=== PATIENT | female | born 1985 | race Caucasian/White ===

== ENCOUNTER 2016-07-13 22:02 | Outpatient (CLI) | payer SELFPAY | END 2016-07-13 22:03 | disposition critical access hospital (66) | DX: R56.9 Unspecified convulsions (principal) | CPT/HCPCS: A0425; A0429 ==

== ENCOUNTER 2016-07-13 22:23 | Emergency (ER) | payer SELFPAY ==
[2016-07-13] MEDS ORDERED: lamoTRIgine 100 MG TABLET PO STA (22:31)
== END 2016-07-13 23:57 | disposition home or self-care (01) ==
DX: G40.909 Epilepsy, unspecified, not intractable, without status epilepticus (principal); T42.6X6A Underdosing of other antiepileptic and sedative-hypnotic drugs, initial encounter; Z91.128 Patient's intentional underdosing of medication regimen for other reason
CPT/HCPCS: 36415; 80053; 81001; 83690; 85025; 87086; 99284; A9270

== ENCOUNTER 2017-01-17 10:51 | Emergency (ER) | payer MEDICAID ==
[2017-01-17] MEDS ORDERED: ALBUTEROL NEB 2.5 MG/3 ML INH STA (13:13)
[2017-01-17 13:25] LABS: RAPID STREP SCREEN REAGENT QC YELLOW (YELLOW)
[2017-01-17] MEDS ORDERED: ALBUTEROL NEB 2.5 MG/3 ML INH ONE (13:29)
[2017-01-17] MEDS ORDERED: IPRATROPIUM 0.2 MG/ML NEB INH STA (13:39)
--- NOTE | 2017-01-17 13:39 | ED Physician Documentation ---
History of Present Illness - Stated complaint Stated Complaint: COUGH - Chief complaint Chief Complaint: Resp - Additonal information Additional information: hx from pt 31 f 11 weeks EGRenata has URI sx started with sore throat, no severe myalgias and unstoppable cough called her PMD and was advised that 2/2 prgnancy they did not know what she could take called her OB and rec robitussin which she tried s relief no flu shot no leg swelling no travel her son is ill with similar Review of Systems Constitutional: reports: Myalgias. denies: Fever Throat: reports: Sore throat Respiratory: reports: Cough GI: denies: Nausea, Vomiting, Diarrhea : reports: Now EGA Immunocompromised: denies: Immunocompromised PD PAST MEDICAL HISTORY - Past Medical History Past Medical History: Yes Neuro: Seizure disorder - Past Surgical History Past Surgical History: Yes General: Cholecystectomy - Present Medications Home Medications: Ambulatory Orders Medication Instructions Recorded Confirmed lamoTRIgine [Lamictal] 100 mg PO DAILY 07/13/16 01/17/17 Pnv95/Ferrous Fumarate/FA 1 each PO DAILY 01/17/17 01/17/17 [ Formula] - Allergies Allergies/Adverse Reactions: Allergies Allergy/AdvReac Type Severity Reaction Status Date / Time No Known Drug Allergies Allergy Unverified 01/17/17 11:05 - Social History Does the pt smoke?: No Smoking Status: Never smoker Does the pt drink ETOH?: No Does the pt have substance abuse?: No - Immunizations Immunizations are current?: Yes PD ED PE NORMAL - Vitals Vital signs reviewed: Yes - HEENT HEENT: Moist mucous membranes, Pharynx benign - Neck Neck: Supple, no meningeal sign - Cardiac Cardiac: RRR - Respiratory Respiratory: No respiratory distress, Clear bilaterally - Abdomen Abdomen: Soft, Non tender - Extremities Extremities: No edema, No calf tenderness / cord - Neuro Neuro: Alert and oriented X 3 Results - Vitals Vitals: Vital Signs - 24 hr 01/17/17 01/17/17 01/17/17 11:02 12:08 13:27 Temperature 36.9 C 36.7 C Heart Rate 74 79 77 Respiratory 16 18 14 Rate Blood Pressure 129/85 H 122/78 O2 Saturation 99 99 Oxygen O2 Source Room air - Labs Labs: Laboratory Tests 01/17/17 01/17/17 13:04 13:04 Influenza A (Rapid) Negative Influenza B (Rapid) Negative Influenza Types A,B Ag - Group A Strep Rapid Negative PD MEDICAL DECISION MAKING - ED course ED course: lungs clear - doubt pna - defer CXR will check influenza and strep as that would change tx pt reporting intractable spasmodic cough will try a neb - albuterol is cat C but the safest of b agonists and is unlikely to absorbed systemically given via neb - if helpful may consider rx of albuterol or atrovent for pt - if no change then would not merit use in first trimester - did not help strep and flu neg will reassure and dc and rec just tylenol for pain, can try tea and honey etc but have no further med rec Departure - Departure Disposition: 01 Home, Self Care Clinical Impression: URI (upper respiratory infection) Qualifiers: URI type: unspecified URI Qualified Code(s): J06.9 - Acute upper respiratory infection, unspecified Qualifiers: Weeks of gestation: 11 weeks Qualified Code(s): Z3A.11 - 11 weeks gestation of Condition: Good Instructions: ED Upper Resp Infec No Abx Tx Follow-Up: Shawn Dallas MD [Provider Admit Priv/Credential] - Comments: Your lungs sound clear - I don't think you have pneumonia Your rapid strep and influenza tests were negative. The nebulizer did not help so I don;' think you have reactive airway disease / bronchspasm Unfortunately being , there are really not many treatment option - just tylenol for fever, plenty of fluids and time
[2017-01-17] MEDS ORDERED: IPRATROPIUM 0.2 MG/ML NEB INH ONE (13:45)
[2017-01-17] MEDS ORDERED: SODIUM CHLORIDE INHALATION 3 ML NEB ONE (13:46)
[2017-01-17 15:18] VITALS: BP 126/81
== END 2017-01-17 15:25 | disposition home or self-care (01) ==
LOC: ED 10:51
DX: O26.891 Other specified pregnancy related conditions, first trimester (principal); J06.9 Acute upper respiratory infection, unspecified; Z3A.11 11 weeks gestation of pregnancy
CPT/HCPCS: 87070; 87275; 87276; 87430; 94640; 99283

== ENCOUNTER 2017-01-25 13:46 | Outpatient (CLI) | payer MEDICAID | END 2017-01-25 13:47 | disposition critical access hospital (66) | LOC: EMS 13:46 | PROVIDERS: ATTEND Surgery | DX: R56.9 Unspecified convulsions (principal) | CPT/HCPCS: A0425; A0429 ==

== ENCOUNTER 2017-02-16 14:41 | Outpatient (CLI) | payer MEDICAID ==
--- NOTE | 2017-02-17 10:29 | Ultrasound Report ---
OB ULTRASOUND: 02/16/2017 CLINICAL INDICATION: Uncertain dates. TECHNIQUE: Real-time scanning was performed with community engagement representative static images obtained. LAST MENSTRUAL PERIOD --- Clinical Age --- US Age 11 weeks 3 days EFW Hadlock --- EFW% Hadlock --- Heart Rate 166 bpm EDC --- US EDC 09/04/2017 BPD [place] --- HC Hadlock --- AC Hadlock --- FL Hadlock --- Presentation --- Placental Location posterior Cervical Length --- Amniotic Fluid --- FINDINGS: There is a single viable intrauterine gestation. By crown-rump length , the fetus measures 11 weeks 3 days, with an CLARIBEL of 09/04/2017. heart rate is 166 BPM. The gestational sac is regular. There is a linear echogenic focus along the anterior margin of the gestational sac, likely representing small dystrophic calcification in the uterus. No perigestational hemorrhage is appreciated. The ovaries are normal, with the right measuring 3.1 x 2.9 x 1.7 cm and the left measuring 4.2 x 2.9 x 1.8 cm. No free fluid is present. IMPRESSION: SINGLE VIABLE INTRAUTERINE GESTATION, MEASURING 11 WEEKS 3 DAYS BY CROWN-RUMP LENGTH. NO EVIDENCE OF PERIGESTATIONAL HEMORRHAGE. MTDD
== END 2017-02-16 14:42 | disposition home or self-care (01) ==
LOC: DI 14:41
PROVIDERS: ATTEND Obstetrics & Gynecology
DX: Z36.87 Encounter for antenatal screening for uncertain dates (principal)
CPT/HCPCS: 76801

== ENCOUNTER 2017-02-24 13:14 | Outpatient (CLI) | payer MEDICAID ==
[2017-02-24 18:57] LABS: BASOPHILS % (AUTO) 0.5 %; EOSINOPHILS % (AUTO) 0.6 %; HCT - HEMATOCRIT 33.5 % (37.0-47.0); HGB - HEMOGLOBIN 11.4 g/dL (12.0-16.0); LYMPHOCYTES # (AUTO) 1.9 10^3/uL (1.5-3.5); LYMPHOCYTES % (AUTO) 21.1 %; MEAN CORPUSCULAR VOLUME 91.2 fL (81.0-99.0); MONOCYTES # (AUTO) 0.3 10^3/uL (0.0-1.0); NEUTROPHILS # (AUTO) 6.5 10^3/uL (1.5-6.6); NEUTROPHILS % (AUTO) 73.8 %; RED BLOOD COUNT 3.67 10^6/uL (4.20-5.40); UNCORRECTED WHITE BLOOD COUNT 8.8 x10^3/uL; WHITE BLOOD COUNT 8.8 x10^3/uL (4.8-10.8)
[2017-02-24 19:42] LABS: BILIRUBIN,URINE NEGATIVE (NEGATIVE)
[2017-02-24 19:49] LABS: WBC,URINE 0-3 /HPF (0-5)
[2017-02-25 09:51] LABS: TEST RESULT REPORT
== END 2017-02-24 13:15 | disposition home or self-care (01) ==
LOC: LAB.N 13:14
PROVIDERS: ATTEND Obstetrics & Gynecology
DX: Z36.9 Encounter for antenatal screening, unspecified (principal)
CPT/HCPCS: 36415; 81001; 81599; 85025; 86592; 86762; 86850; 86900; 86901; 87340; 87389

== ENCOUNTER 2017-03-16 16:25 | Outpatient (CLI) | payer MEDICAID | END 2017-03-16 16:26 | disposition home or self-care (01) | LOC: LAB 16:25 | PROVIDERS: ATTEND Obstetrics & Gynecology | DX: G40.419 Other generalized epilepsy and epileptic syndromes, intractable, without status epilepticus (principal) | CPT/HCPCS: 36415; 80175 ==

== ENCOUNTER 2017-04-19 11:56 | Outpatient (CLI) | payer MEDICAID | END 2017-04-19 11:57 | disposition home or self-care (01) | LOC: LAB 11:56 | PROVIDERS: ATTEND Psychiatry & Neurology Neurology | DX: O99.352 Diseases of the nervous system complicating pregnancy, second trimester (principal); G40.909 Epilepsy, unspecified, not intractable, without status epilepticus | CPT/HCPCS: 36415; 80175 ==

== ENCOUNTER 2017-05-18 | Outpatient (CLI) | payer MEDICAID | END 2017-05-18 11:04 | disposition home or self-care (01) | CPT/HCPCS: 36415; 80175; 82950; 86850; 97802 ==

== ENCOUNTER 2017-05-18 12:11 | Outpatient (CLI) | payer MEDICAID ==
[2017-05-18 13:51] LABS: HGB - HEMOGLOBIN 10.7 g/dL (12.0-16.0); MEAN CORPUSCULAR HEMOGLOBIN 30.1 pg (27.0-31.0); MEAN CORPUSCULAR HGB CONC 33.8 g/dL (32.0-36.0); MEAN CORPUSCULAR VOLUME 88.9 fL (81.0-99.0); MEAN PLATELET VOLUME 8.5 fL (7.9-10.8); RED BLOOD COUNT 3.55 10^6/uL (4.20-5.40); RED CELL DISTRIBUTION WIDTH 14.7 % (12.0-15.0); WHITE BLOOD COUNT 12.6 x10^3/uL (4.8-10.8)
== END 2017-05-18 12:12 | disposition home or self-care (01) ==
LOC: LAB 12:11
PROVIDERS: ATTEND Obstetrics & Gynecology
DX: Z34.90 Encounter for supervision of normal pregnancy, unspecified, unspecified trimester (principal); G40.89 Other seizures
CPT/HCPCS: 36415; 80175; 82950; 86850

== ENCOUNTER 2017-06-07 10:11 | Outpatient (CLI) | payer MEDICAID ==
[2017-06-07 10:42] VITALS: BP 123/65
[2017-06-07 11:05] LABS: BILIRUBIN,URINE NEGATIVE (NEGATIVE); GLUCOSE, URINE (UA) NEGATIVE (NEGATIVE); KETONES,URINE (UA) NEGATIVE (NEGATIVE); LEUKOCYTE ESTERASE, URINE NEGATIVE (NEGATIVE); NITRITE,URINE NEGATIVE (NEGATIVE); OCCULT BLOOD,URINE NEGATIVE (NEGATIVE); PH,URINE 5.5 PH (5.0-7.5); PROTEIN,URINE NEGATIVE (NEGATIVE); UROBILINOGEN,URINE 0.2 (NORMAL) E.U./dL (NORMAL)
[2017-06-07 11:14] LABS: BACTERIA,URINE Rare /HPF (None Seen); CLARITY,URINE CLEAR (CLEAR); MUCUS,URINE Moderate Strands; RBC,URINE 0-5 /HPF (0-5); SQUAMOUS EPITHELIAL CELL,UR RARE Squamous (<= Few)
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
== END 2017-06-07 11:30 | disposition home or self-care (01) ==
LOC: WFO 10:11 → FBP 10:14 → WFO 11:30
PROVIDERS: ATTEND Obstetrics & Gynecology
DX: O99.89 Other specified diseases and conditions complicating pregnancy, childbirth and the puerperium (principal); M54.6 Pain in thoracic spine; Z3A.27 27 weeks gestation of pregnancy
CPT/HCPCS: 81001; 87086; 99212

== ENCOUNTER 2018-02-24 14:19 | Outpatient (CLI) | payer MEDICAID, OTHER ==
[2018-02-24 19:15] LABS: BASOPHILS % (AUTO) 0.5 %; EOSINOPHILS # (AUTO) 0.1 10^3/uL (0.0-0.7); EOSINOPHILS % (AUTO) 1.3 %; LYMPHOCYTES # (AUTO) 1.8 10^3/uL (1.5-3.5); LYMPHOCYTES % (AUTO) 25.2 %; MEAN CORPUSCULAR HGB CONC 33.7 g/dL (32.0-36.0); MEAN PLATELET VOLUME 8.7 fL (7.9-10.8); MONOCYTES # (AUTO) 0.6 10^3/uL (0.0-1.0); MONOCYTES % (AUTO) 8.7 %; NEUTROPHILS # (AUTO) 4.6 10^3/uL (1.5-6.6); NEUTROPHILS % (AUTO) 64.3 %; PLT - PLATELET COUNT 295 10^3/uL (130-450); RED BLOOD COUNT 4.35 10^6/uL (4.20-5.40); WHITE BLOOD COUNT 7.1 x10^3/uL (4.8-10.8)
[2018-02-24 19:43] LABS: CALCIUM 9.5 mg/dL (8.5-10.3); CREATININE 0.7 mg/dL (0.4-1.0)
== END 2018-02-24 23:59 | disposition home or self-care (01) ==
LOC: LAB.N 14:19
PROVIDERS: ATTEND Physician Assistant Medical
DX: Z00.00 Encounter for general adult medical examination without abnormal findings (principal); E66.9 Obesity, unspecified; E55.9 Vitamin D deficiency, unspecified; F41.9 Anxiety disorder, unspecified; G40.909 Epilepsy, unspecified, not intractable, without status epilepticus
CPT/HCPCS: 36415; 80048; 82306; 84443; 85025

== ENCOUNTER 2019-02-21 22:02 | Emergency (ER) | payer OTHER ==
[2019-02-21] MEDS ORDERED: KETOROLAC 60 MG/2 ML VIAL IM STA (23:14)
[2019-02-21] MEDS ORDERED: DEXAMETHASONE 10 MG/ML VIAL PO STA (23:14)
[2019-02-21] MEDS ORDERED: CHERRY SYRUP 10 ML UDC PO ONE (23:14)
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
[2019-02-21 23:52] LABS: BILIRUBIN,URINE NEGATIVE (NEGATIVE); GLUCOSE, URINE (UA) NEGATIVE (NEGATIVE); KETONES,URINE (UA) NEGATIVE (NEGATIVE); LEUKOCYTE ESTERASE, URINE NEGATIVE (NEGATIVE); NITRITE,URINE NEGATIVE (NEGATIVE); OCCULT BLOOD,URINE TRACE-INTA (NEGATIVE); PH,URINE 5.5 PH (5.0-7.5); PROTEIN,URINE NEGATIVE (NEGATIVE); UROBILINOGEN,URINE 0.2 (NORMAL) E.U./dL (NORMAL)
[2019-02-21 23:55] LABS: CLARITY,URINE CLEAR (CLEAR); HCG UR QUAL NEGATIVE
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
[2019-02-22 00:45] VITALS: BP 114/64
== END 2019-02-22 00:55 | disposition home or self-care (01) ==
LOC: ED 22:02
DX: S39.012A Strain of muscle, fascia and tendon of lower back, initial encounter (principal); V43.52XA Car driver injured in collision with other type car in traffic accident, initial encounter; W22.11XA Striking against or struck by driver side automobile airbag, initial encounter; Y92.410 Unspecified street and highway as the place of occurrence of the external cause; M47.816 Spondylosis without myelopathy or radiculopathy, lumbar region; M41.86 Other forms of scoliosis, lumbar region
CPT/HCPCS: 72100; 81003; 81025; 99284; A9270; 81001; 87086

== ENCOUNTER 2020-03-20 08:00 | Outpatient (CLI) | payer BC, OTHER ==
[2020-03-20 18:49] LABS: BASOPHILS # (AUTO) 0.1 10^3/uL (0.0-0.1); BASOPHILS % (AUTO) 0.9 %; EOSINOPHILS # (AUTO) 0.2 10^3/uL (0.0-0.7); HCT - HEMATOCRIT 41.3 % (37.0-47.0); HGB - HEMOGLOBIN 13.5 g/dL (12.0-16.0); LYMPHOCYTES # (AUTO) 1.7 10^3/uL (1.5-3.5); LYMPHOCYTES % (AUTO) 31.2 %; MEAN CORPUSCULAR HEMOGLOBIN 31.2 pg (27.0-31.0); MEAN CORPUSCULAR HGB CONC 32.7 g/dL (32.0-36.0); MEAN CORPUSCULAR VOLUME 95.4 fL (81.0-99.0); MEAN PLATELET VOLUME 11.7 fL (7.9-10.8); MONOCYTES # (AUTO) 0.5 10^3/uL (0.0-1.0); MONOCYTES % (AUTO) 8.7 %; NEUTROPHILS % (AUTO) 55.8 %; PLT - PLATELET COUNT 275 10^3/uL (130-450); RED BLOOD COUNT 4.33 10^6/uL (4.20-5.40); RED CELL DISTRIBUTION WIDTH 13.1 % (12.0-15.0); WHITE BLOOD COUNT 5.4 x10^3/uL (4.8-10.8)
[2020-03-20 19:01] LABS: ALBUMIN 4.4 g/dL (3.2-5.5); ALBUMIN/GLOBULIN RATIO 1.3 (1.0-2.2); ALKALINE PHOSPHATASE 34 IU/L (42-121); ALT ALANINE AMINOTRANSFERASE 32 IU/L (10-60); AST ASPARTATE AMINOTRANSFERASE 26 IU/L (10-42); BILIRUBIN,TOTAL 0.6 mg/dL (0.2-1.0); BUN - BLOOD UREA NITROGEN 10 mg/dL (6-20); CALCIUM 9.4 mg/dL (8.5-10.3); CARBON DIOXIDE - CO2 24 mmol/L (21-32); CHLORIDE 102 mmol/L (101-111); CHOL/HDL RATIO 6.4 (<4.4); CHOLESTEROL 287 mg/dL; GFR - MDRD 63 (>89); GLUCOSE 108 mg/dL (70-100); HDL CHOLESTEROL 45 mg/dL; LDL CHOLESTEROL,CALCULATED 191 mg/dL; LDL/HDL RATIO 4.2 (<4.4); POTASSIUM 3.8 mmol/L (3.5-5.0); SODIUM 137 mmol/L (135-145); TOTAL PROTEIN 7.7 g/dL (6.7-8.2); TRIGLYCERIDES 257 mg/dL; VLDL CHOLESTEROL 51 mg/dL
[2020-03-20 19:11] LABS: THYROID STIMULATING HORMONE 1.28 uIU/mL (0.34-5.60)
[2020-03-20 19:55] LABS: PLATELET ESTIMATE, MANUAL NORMAL (130-450,000) (NORMAL); PLATELET MORPHOLOGY NORMAL APPEARANCE (NORMAL); RBC MORPHOLOGY (MULTIPLE) NORMAL APPEARANCE (NORMAL); SLIDE REVIEW? Indicated
== END 2020-03-20 23:59 | disposition home or self-care (01) ==
LOC: LAB.WCP 08:00
PROVIDERS: ATTEND Nurse Practitioner Family
DX: E66.9 Obesity, unspecified (principal); F32.9 Major depressive disorder, single episode, unspecified; Z79.899 Other long term (current) drug therapy
CPT/HCPCS: 36415; 80053; 80061; 83721; 84443; 85025

== ENCOUNTER 2020-05-26 15:12 | Outpatient (CLI) | payer OTHER ==
--- NOTE | 2020-05-26 15:51 | XRAY Report ---
PROCEDURE: Cervical Spine 2 View INDICATIONS: CHRONIC NECK PAIN TECHNIQUE: 3 view(s) of the cervical spine were acquired. COMPARISON: None. FINDINGS: No fracture. Straightening of the normal lordotic curvature. Scattered multilevel endplate spurring and diffuse facet arthropathy.Moderate narrowing of the C4-C5 C5-C6 disc spaces. Levocurvature of the cervicothoracic spine Soft tissues: No prevertebral soft tissue swelling. IMPRESSION: Levocurvature Multilevel cervical spondylosis most pronounced at C4-C5 and C5-C6, and diffuse facet arthropathy. Reviewed by: Raheem Mari MD on 05/26/2020 3:49 PM PST Approved by: Raheem Mari MD on 05/26/2020 3:49 PM PST Station ID: [id number]
== END 2020-05-26 15:13 | disposition home or self-care (01) ==
LOC: DI.N 15:12
PROVIDERS: ATTEND Nurse Practitioner Family
DX: M47.812 Spondylosis without myelopathy or radiculopathy, cervical region (principal)

== ENCOUNTER 2021-03-10 08:00 | Outpatient (CLI) | payer OTHER | END 2021-03-10 23:59 | LOC: LAB.N 08:00 | PROVIDERS: ATTEND Family Medicine | DX: R09.81 Nasal congestion (principal); R07.0 Pain in throat; Z20.822 Contact with and (suspected) exposure to COVID-19 | CPT/HCPCS: 87070; 87275; 87276 ==

== ENCOUNTER 2022-10-09 13:29 | Outpatient (CLI) | payer OTHER ==
--- NOTE | 2022-10-09 14:30 | Ultrasound Report ---
PROCEDURE: OB First Trimester w/TV INDICATIONS: POSITIVE TEST OUTSIDE/PRIOR DATING DATA: Last menstrual period (LMP): 06/30/2022. LMP-based estimated date of delivery (CLARIBEL): 04/06/2023. First dating scan (date and location): 10/09/2022. Estimated date of delivery (CLARIBEL) from first dating scan: 04/21/2023. TECHNIQUE: Real-time scanning was performed of the fetus and maternal pelvic organs, with image documentation. Endovaginal scanning was also performed to better visualize the fetus and maternal ovaries. COMPARISON: None. FINDINGS: Single living intrauterine gestation with estimated sonographic gestational age of approxi mately 12 weeks and 2 days based off crown-rump length measurement of approximately 5.65 cm. Heart rate: 164 bpm. Other: No perigestational fluid collection. Measurement variability in dating: +/- 4 weeks by LMP, +/- 7 days by mean sac diameter (use before 6 weeks gestation if crown-rump length not able to be measured), +/- 5 days by crown-rump length (6-12 weeks gestation). Maternal organs: Ovaries appear within normal limits. IMPRESSION: Single living intrauterine gestation with estimated sonographic gestational age of approximately 12 w eeks and 2 days based off crown-rump length measurement. Estimated date of delivery is approximately 04/21/2023. Reviewed by: Jose Pan MD on 10/09/2022 1:29 PM GHAZAL Approved by: Jose Pan MD on 10/09/2022 1:29 PM GHAZAL Station ID: [id number]
== END 2022-10-09 13:30 | disposition home or self-care (01) ==
LOC: DI 13:29
PROVIDERS: ATTEND Obstetrics & Gynecology
DX: Z34.91 Encounter for supervision of normal pregnancy, unspecified, first trimester (principal)

== ENCOUNTER 2022-10-19 08:00 | Outpatient (CLI) | payer OTHER ==
[2022-10-19 19:05] LABS: CHLAMYDIA TRACHOMATIS DNA NEGATIVE (NEGATIVE); NEISSERIA GONORRHOEAE DNA NEGATIVE (NEGATIVE); TRICHOMONAS VAGINALIS DNA NEGATIVE (NEGATIVE)
== END 2022-10-19 23:59 | disposition home or self-care (01) ==
LOC: LAB.R 08:00 → LAB.WC 23:59
PROVIDERS: ATTEND Obstetrics & Gynecology
DX: Z11.3 Encounter for screening for infections with a predominantly sexual mode of transmission (principal)
CPT/HCPCS: 87491; 87591; 87661

== ENCOUNTER 2022-11-23 15:53 | Outpatient (CLI) | payer OTHER | END 2022-11-23 15:54 | disposition home or self-care (01) | LOC: LAB 15:53 | PROVIDERS: ATTEND Obstetrics & Gynecology | DX: E55.9 Vitamin D deficiency, unspecified (principal); Z11.3 Encounter for screening for infections with a predominantly sexual mode of transmission; O09.521 Supervision of elderly multigravida, first trimester | CPT/HCPCS: 36415; 82306 ==

== ENCOUNTER 2022-12-25 19:25 | Outpatient (CLI) | payer OTHER ==
--- NOTE | 2022-12-25 21:52 | Ultrasound Report ---
PROCEDURE: OB Detailed Eval INDICATIONS: has not had anatomy scan or placenta exam yet. OUTSIDE/PRIOR DATING DATA: Last menstrual period (LMP): 06/30/2022. LMP-based estimated date of delivery (CLARIBEL): 04/06/2023. First dating scan (date and location): 10/09/2022. Estimated date of delivery (CLARIBEL) from first dating scan: 04/21/2023. The below data below was generated using the ultrasound-guided right-sided CLARIBEL of 04/21/2023 TECHNIQUE: Real-time scanning was performed of the fetus, with image documentation and biometric measurements. Endovaginal scanning: Not needed COMPARISON: 10/09/2022 first trimester OB ultrasound FINDINGS: General: A single living intrauterine gestation is present. Presentation: Variable at this time Placenta: Placental position is anterior, without previa. Amniotic fluid index: 17.8 cm, within normal limits for gestational age. heart rate: 150 beats per minute. Maternal cervical canal: 4.5 cm long; normal length is 2.5 cm or more. biometrics: Biparietal diameter: 5.8 cm, 23 weeks 6 days Head circumference: 22.4 cm, 24 weeks 3 days Abdominal circumference: 18.3 cm, 23 weeks 1 day Femur length: 3.9 cm, 22 weeks 5 days Estimated gestational age from initial scan: 23 weeks 2 days Composite gestational age from present scan: 23 weeks 4 days Estimated weight and percentile: 563.5 g, 33.6 percentile Measurement variability in biometric dating: +/- 10 days from 12-20 weeks gestation, +/- 2 weeks from 20-30 weeks gestation, +/- 3 weeks at 30 weeks gestation or later. Anatomic survey: Neuro: Ventricles are normal at less than 10 mm. Cisterna magna is normal at 3-11 mm. Cerebellum i s normal in size and morphology. Nuchal skin fold: Normal at less than 6 mm between 14 and 20 weeks gestational age. Face: Nose and lips, facial profile are normal. Spine: No evidence for spina bifida. Heart: 4-chambered heart is present, with poorly visualized ventricular outflow tracts due to positioning. Diaphragm: Diaphragm is not well seen. Stomach: Left-sided stomach is present. Kidneys: No hydronephrosis. Normal is less than 5 mm in 2nd trimester, less than 7 mm in 3rd trimester. Cord: 3 vessel cord has orthotopic insertion. Bladder: Normal in size. Extremities: All 4 extremities are visualized. IMPRESSION: Appropriate interval growth, normal limited survey of anatomy. The diaphragm and ventricular ou tflow tracts could not be well visualized during this study due to positioning. Normal amniotic fluid. Normal maternal cervix. The delivery date is projected to be centered on . Reviewed by: Liu Cortez MD on 12/25/2022 9:51 PM PDT Approved by: Liu Cortez MD on 12/25/2022 9:51 PM PDT Station ID: [id number]
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
[2022-12-25 23:06] VITALS: BP 122/62
== END 2022-12-25 22:30 | disposition home or self-care (01) ==
LOC: WFO 19:25 → FBP 19:27 → WFO 22:30
PROVIDERS: ATTEND Obstetrics & Gynecology
DX: O46.92 Antepartum hemorrhage, unspecified, second trimester (principal); Z3A.22 22 weeks gestation of pregnancy
CPT/HCPCS: 81514; 99214

== ENCOUNTER 2023-02-04 08:00 | Outpatient (CLI) | payer OTHER ==
[2023-02-04 16:02] LABS: CLARITY,URINE HAZY (CLEAR)
[2023-02-04 17:12] LABS: BACTERIA,URINE Many /HPF (None Seen); RBC,URINE 0-5 /HPF (0-5); SQUAMOUS EPITHELIAL CELL,UR NONE SEEN (<= Few); WBC,URINE >25 /HPF (0-5)
== END 2023-02-04 23:59 | disposition home or self-care (01) ==
LOC: LAB.WC 08:00
PROVIDERS: ATTEND Nurse Practitioner
DX: R30.0 Dysuria (principal)
CPT/HCPCS: 81001; 87077; 87086; 87181

== ENCOUNTER 2023-02-06 14:19 | Outpatient (CLI) | payer OTHER ==
[2023-02-06] MEDS ORDERED: ONDANSETRON 4 MG/2 ML VIAL IVP PRN (14:29)
--- NOTE | 2023-02-06 14:52 | PROVIDER PROGRESS NOTE ---
- HPI Chief Complaint: GI symptoms Current : Patient is a 37-year-old -0-0-3 presenting at 29 weeks and 4 days with nausea, vomiting, and diarrhea that started this morning. Patient was started on Keflex for urinary tract infection last night. She reports positive movement, denies contractions, denies vaginal bleeding, denies leakage of fluid. - Exam Gen: NAD Pulm CTA bilaterally Cardiac: RRR Abdomen: obese, gravid, non-tender No CVA tenderness
[2023-02-06] MEDS ORDERED: LACTATED RINGERS 1,000 ML IV SCH (15:00)
[2023-02-06 15:37] LABS: BASOPHILS % (AUTO) 0.2 %; HCT - HEMATOCRIT 36.8 % (37.0-47.0); HGB - HEMOGLOBIN 11.9 g/dL (12.0-16.0); LYMPHOCYTES # (AUTO) 0.3 10^3/uL (1.5-3.5); LYMPHOCYTES % (AUTO) 2.6 %; MEAN CORPUSCULAR HEMOGLOBIN 29.3 pg (27.0-31.0); MEAN CORPUSCULAR HGB CONC 32.3 g/dL (32.0-36.0); MEAN CORPUSCULAR VOLUME 90.6 fL (81.0-99.0); MONOCYTES # (AUTO) 0.3 10^3/uL (0.0-1.0); MONOCYTES % (AUTO) 2.3 %; NEUTROPHILS # (AUTO) 12.1 10^3/uL (1.5-6.6); NEUTROPHILS % (AUTO) 94.4 %; PLT - PLATELET COUNT 284 10^3/uL (130-450); RED BLOOD COUNT 4.06 10^6/uL (4.20-5.40); RED CELL DISTRIBUTION WIDTH 14.7 % (12.0-15.0); WHITE BLOOD COUNT 12.9 x10^3/uL (4.8-10.8)
[2023-02-06 16:00] LABS: ALBUMIN 3.7 g/dL (3.2-5.5)
--- NOTE | 2023-02-06 16:01 | Discharge Plan ---
Discharge Plan Problem Reviewed?: Yes Disposition: Home, Self Care Condition: Good Prescriptions: Amoxicillin 500 mg PO Q8HR 5 Days #15 cap No Smoking: If you smoke, Please STOP! Call for help. Follow-up with: Sadie Powers PA-C [Primary Care Provider] -
[2023-02-06 16:05] VITALS: BP 136/79
[2023-02-06 16:05] LABS: ALBUMIN/GLOBULIN RATIO 1.3 (1.0-2.2); BILIRUBIN,TOTAL 0.5 mg/dL (0.2-1.0); CREATININE 0.5 mg/dL (0.6-1.3); POTASSIUM 3.9 mmol/L (3.5-4.5); TOTAL PROTEIN 6.6 g/dL (6.4-8.9)
== END 2023-02-06 16:30 | disposition home or self-care (01) ==
LOC: WFO 14:19 → FBP 14:21 → WFO 16:30
PROVIDERS: ATTEND Obstetrics & Gynecology Obstetrics
DX: O21.2 Late vomiting of pregnancy (principal); O23.43 Unspecified infection of urinary tract in pregnancy, third trimester; B96.4 Proteus (mirabilis) (morganii) as the cause of diseases classified elsewhere; N39.0 Urinary tract infection, site not specified; Z3A.29 29 weeks gestation of pregnancy
CPT/HCPCS: 80053; 85025; 96361; 96374; 99215; J7120

== ENCOUNTER 2023-02-09 16:56 | Outpatient (CLI) | payer OTHER ==
--- NOTE | 2023-02-10 14:25 | Ultrasound Report ---
PROCEDURE: OB F/U or Repeat INDICATIONS: SUPERVISION OF OUTSIDE/PRIOR DATING DATA: Last menstrual period (LMP): 06/30/2022. LMP-based estimated date of delivery (CLARIBEL): 04/06/2023. First dating scan (date and location): 10/09/2022. Estimated date of delivery (CLARIBEL) from first dating scan: 04/21/2023. The below data below was generated using the working CLARIBEL of 04/21/2023 TECHNIQUE: Real-time scanning was performed of the fetus, with image documentation. Endovaginal scanning: Not performed. COMPARISON: 10/09/2022, 12/25/2022 FINDINGS: General: A single living intrauterine gestation is present. Presentation: Vertex Placenta: Placental position is anterior, without previa. Amniotic fluid index: 21.9 cm, 91.5% for gestational age. heart rate: 150 beats per minute. Maternal cervical canal: Closed and not well seen. Estimated gestational age from initial scan: 29 weeks, 6 days Other: Ventricular outflow tracts are well visualized on the current study and are within normal limi ts. diaphragm is also well seen and is within normal limits. IMPRESSION: 1. Single live intrauterine gestation with fetus in vertex presentation. heart rate is 150 bpm. Normal amount of amniotic fluid. LAURO measures 21.9 cm. 2. Normal ventricular outflow tracts and diaphragm are seen on the current study. Reviewed by: René Doshi MD on 02/10/2023 2:24 PM PST Approved by: René Doshi MD on 02/10/2023 2:24 PM PST Station ID: [id number]
== END 2023-02-09 16:57 | disposition home or self-care (01) ==
LOC: DI 16:56
PROVIDERS: ATTEND Obstetrics & Gynecology
DX: O09.893 Supervision of other high risk pregnancies, third trimester (principal); Z3A.29 29 weeks gestation of pregnancy

== ENCOUNTER 2023-03-04 11:33 | Outpatient (CLI) | payer OTHER ==
[2023-03-04 18:11] LABS: HCT - HEMATOCRIT 32.7 % (37.0-47.0); HGB - HEMOGLOBIN 10.4 g/dL (12.0-16.0); MEAN CORPUSCULAR HEMOGLOBIN 29.5 pg (27.0-31.0); MEAN CORPUSCULAR HGB CONC 31.8 g/dL (32.0-36.0); MEAN CORPUSCULAR VOLUME 92.9 fL (81.0-99.0); MEAN PLATELET VOLUME 11.7 fL (7.9-10.8); RED BLOOD COUNT 3.52 10^6/uL (4.20-5.40); RED CELL DISTRIBUTION WIDTH 16.3 % (12.0-15.0); WHITE BLOOD COUNT 8.5 x10^3/uL (4.8-10.8)
[2023-03-04 18:27] LABS: FERRITIN 13.2 ng/mL (11.0-306.8)
== END 2023-03-04 11:34 | disposition home or self-care (01) ==
LOC: LAB.N 11:33
PROVIDERS: ATTEND Nurse Practitioner
DX: O09.892 Supervision of other high risk pregnancies, second trimester (principal); O99.891 Other specified diseases and conditions complicating pregnancy; R06.02 Shortness of breath; O99.352 Diseases of the nervous system complicating pregnancy, second trimester; G40.909 Epilepsy, unspecified, not intractable, without status epilepticus; Z36.89 Encounter for other specified antenatal screening
CPT/HCPCS: 36415; 80175; 82728; 82950; 85027

== ENCOUNTER 2023-03-09 12:57 | Outpatient (CLI) | payer OTHER ==
[2023-03-09 13:20] VITALS: BP 127/73; O2SAT 99
--- NOTE | 2023-03-09 16:58 | PROCEDURE REPORT ---
- HPI Diagnosis/Indication for NST: Other (Obesity, epilepsy) Current EDU 04/21/23 Gestation 33 Weeks and 6 Days 4 Para 3 Vital Signs Temperature 98.1 F 03/09/23 13:11 Heart Rate 76 03/09/23 13:11 Respiratory Rate 16 03/09/23 13:11 Blood Pressure 127/73 03/09/23 13:11 O2 Saturation 99 03/09/23 13:11 Temperature 98.1 F 03/09/23 13:11 Heart Rate 76 03/09/23 13:11 Respiratory Rate 16 03/09/23 13:11 Blood Pressure 127/73 03/09/23 13:11 O2 Saturation 99 03/09/23 13:11 If not protocol: Oxygen Flow, liters/minute - NST Procedure NST Procedure Start Date 03/09/23 Start Time 13:07 Stop Time 13:45 Vibroacoustic Stimulation Used No Patient States Movement Yes 33+6 weeks 125, moderate variability, +accels, no decels reactive NST
== END 2023-03-09 13:50 | disposition home or self-care (01) ==
LOC: WFO 12:57 → FBP 12:59 → WFO 13:50
PROVIDERS: ATTEND Obstetrics & Gynecology Obstetrics
DX: O09.893 Supervision of other high risk pregnancies, third trimester (principal); O99.213 Obesity complicating pregnancy, third trimester; O99.353 Diseases of the nervous system complicating pregnancy, third trimester; G40.909 Epilepsy, unspecified, not intractable, without status epilepticus; Z3A.33 33 weeks gestation of pregnancy; O99.810 Abnormal glucose complicating pregnancy
CPT/HCPCS: 59025

== ENCOUNTER 2023-03-09 13:53 | Outpatient (CLI) | payer OTHER ==
--- NOTE | 2023-03-09 15:35 | Ultrasound Report ---
PROCEDURE: OB Biophysical Profile INDICATIONS: OBESITY OUTSIDE/PRIOR DATING DATA: Last menstrual period (LMP): 06/30/2022. LMP-based estimated date of delivery (CLARIBEL): 04/06/2023. First dating scan (date and location): 12 weeks 2 days. Estimated date of delivery (CLARIBEL) from first dating scan: 04/21/2023. The below data below was generated using the ultrasound CLARIBEL of 04/21/2023 TECHNIQUE: Real-time scanning was performed of the fetus, with image documentation and biometric ernesto surements. Biophysical profile was also obtained. COMPARISON: None. FINDINGS: General: A single living intrauterine gestation is present. Presentation: Transverse with head to the right. Placenta: Placental position is anterior, without previa. Amniotic fluid index: 20.6 cm, 84 percentile for gestational age. heart rate: 143 beats per minute. Maternal cervical canal: 4.2 cm long; normal length is 2.5 cm or more. Estimated gestational age by initial ultrasound 33 weeks 6 days. Biophysical profile: Tone: 2 points. Movement: 2 points. Respiration: 2 points. Largest pocket of fluid: 2 points. IMPRESSION: 1. Biophysical profile 8/8. 2. LAURO 20.6 cm. 3. Estimated gestational age 33 weeks 6 days. Reviewed by: Erick Silverman MD on 03/09/2023 3:34 PM PST Approved by: Erick Silverman MD on 03/09/2023 3:34 PM PST Station ID: [id number]
== END 2023-03-09 13:54 | disposition home or self-care (01) ==
LOC: DI 13:53
PROVIDERS: ATTEND Nurse Practitioner
DX: O09.893 Supervision of other high risk pregnancies, third trimester (principal); O99.213 Obesity complicating pregnancy, third trimester; O99.343 Other mental disorders complicating pregnancy, third trimester; Z3A.33 33 weeks gestation of pregnancy; O99.355 Diseases of the nervous system complicating the puerperium; G40.909 Epilepsy, unspecified, not intractable, without status epilepticus; O99.810 Abnormal glucose complicating pregnancy
CPT/HCPCS: 59025

== ENCOUNTER 2023-03-16 04:00 | Outpatient (CLI) | payer OTHER ==
[2023-03-16 04:35] VITALS: BP 125/71
--- NOTE | 2023-03-16 05:25 | PROVIDER PROGRESS NOTE ---
- HPI Chief Complaint: Vaginal bleeding Current : Vital Signs Temperature 98.2 F 03/16/23 04:22 Heart Rate 69 03/16/23 04:22 Respiratory Rate 16 03/16/23 04:22 Blood Pressure 125/71 03/16/23 04:22 Temperature 98.2 F 03/16/23 04:22 Heart Rate 69 03/16/23 04:22 Respiratory Rate 16 03/16/23 04:22 Blood Pressure 125/71 03/16/23 04:22 O2 Saturation If not protocol: Oxygen Flow, liters/minute - Procedures OB Procedure Performed: NST Diagnosis/Indication for NST: Other (Vaginal bleeding) - Plan Plan: Patient is a 37-year-old -0-0-3 at 34 weeks 6 days gestation presenting to triage for vaginal bleeding. She called triage earlier with a small amount of spotting and then had an increase and had blood on the panty liner so she came to triage. No leaking, itching, burning she denies headache, right upper quadrant pain, changes in vision. She has had some back pain although no contractions. Past medical history Epilepsy: On lamotrigine Obesity: BMI 45 Anxiety/depression Advanced maternal age Past surgical history Cholecystectomy: 2007 Family history Father: Diabetes Paternal grandmother colon cancer Paternal grandfather colon cancer Social history Denies tobacco, alcohol, drugs Allergies: Keflex: GI side effects Physical Exam Constitutional: alert, no acute distress, well hydrated, well developed, well nourished, appropriate dress. Cardiovascular: Regular rate and rhythm. Respiratory: no respiratory distress. Abdomen: nondistended, nontender, no guarding. Psych: affect and mood appropriate, normal interaction, good eye contact. SSE: Small amount of blood at the vagina. No active bleeding noted. Small amount amount of discharge, although blood did obscure. 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 SVE: 0/0/-3 FHT: 135 bpm baseline, moderate variability, accelerations present, no decelerations. [place]: Quiescent Assessment and plan 37-year-old -0-0-3 at 34 weeks gestation vaginal bleeding Vaginal bleeding: Possibly related to yeast, although more blood than typical for this. Did observe in triage for several hours with no additional bleeding or spotting when wiping. Will monitor symptoms at home. Feels comfortable leaving with bleeding precautions for return. -GC/CT, vaginosis panel, UA pending. Patient comfortable following up outpatient. 34 weeks gestation: -Follow up outpatient for routine care. -one episode of leaking while sitting on toilet. No leaking on valsalva earlier. Declined repeat speculum exam. Will monitor for recurrence. ROM plus glial cells positive with blood. Likely urinary given that it happened 1 time while sitting on the toilet. obesity: -Will try to perform todays ultrasound early since she is here. Otherwise will return this afternoon
[2023-03-16 08:36] LABS: BILIRUBIN,URINE NEGATIVE (NEGATIVE); GLUCOSE, URINE (UA) NEGATIVE (NEGATIVE); KETONES,URINE (UA) NEGATIVE (NEGATIVE); LEUKOCYTE ESTERASE, URINE NEGATIVE (NEGATIVE); NITRITE,URINE NEGATIVE (NEGATIVE); OCCULT BLOOD,URINE MODERATE (NEGATIVE); PROTEIN,URINE NEGATIVE (NEGATIVE); UROBILINOGEN,URINE 0.2 (NORMAL) E.U./dL (NORMAL)
[2023-03-16 08:46] LABS: CLARITY,URINE CLEAR (CLEAR); RBC,URINE None Seen /HPF (0-5); SQUAMOUS EPITHELIAL CELL,UR MOD Squamous (<= Few); WBC,URINE 0-3 /HPF (0-5)
[2023-03-16 08:47] LABS: BACTERIA,URINE Rare /HPF (None Seen)
[2023-03-16 14:17] LABS: CHLAMYDIA TRACHOMATIS DNA NEGATIVE (NEGATIVE); NEISSERIA GONORRHOEAE DNA NEGATIVE (NEGATIVE)
[2023-03-16 17:53] LABS: BACTERIAL VAGINOSIS DNA NEGATIVE (NEGATIVE); CANDIDA KRUSEI DNA NEGATIVE (NEGATIVE)
[2023-03-16 17:54] LABS: CANDIDA GLABRATA DNA NEGATIVE (NEGATIVE); CANDIDA GROUP DNA POSITIVE (NEGATIVE); TRICHOMONAS VAGINALIS DNA NEGATIVE (NEGATIVE)
== END 2023-03-16 07:45 | disposition home or self-care (01) ==
LOC: WFO 04:00 → FBP 04:02 → WFO 07:45
PROVIDERS: ATTEND Obstetrics & Gynecology
DX: O46.93 Antepartum hemorrhage, unspecified, third trimester (principal); O99.353 Diseases of the nervous system complicating pregnancy, third trimester; G40.909 Epilepsy, unspecified, not intractable, without status epilepticus; Z3A.34 34 weeks gestation of pregnancy; O99.213 Obesity complicating pregnancy, third trimester; O99.343 Other mental disorders complicating pregnancy, third trimester; F41.9 Anxiety disorder, unspecified; F32.A Depression, unspecified; O09.523 Supervision of elderly multigravida, third trimester
CPT/HCPCS: 59025; 81001; 81514; 87086; 87491; 87591; 87661; 99213; 99214

== ENCOUNTER 2023-03-17 21:06 | Outpatient (CLI) | payer OTHER ==
--- NOTE | 2023-03-18 08:52 | Ultrasound Report ---
PROCEDURE: OB Biophysical Profile INDICATIONS: OBESITY OUTSIDE/PRIOR DATING DATA: Last menstrual period (LMP): 06/30/2022. LMP-based estimated date of delivery (CLARIBEL): 04/06/2023. First dating scan (date and location): 10/09/2022. Estimated date of delivery (CLARIBEL) from first dating scan: 04/21/2023. The below data below was generated using the ultrasound CLARIBEL of 04/21/2023 TECHNIQUE: Real-time scanning was performed of the fetus, with image documentation and biometric ernesot surements. Biophysical profile was also obtained. Endovaginal scanning: Not performed COMPARISON: Ultrasound 03/09/2023 FINDINGS: General: A single living intrauterine gestation is present. Presentation: Breech Placenta: Placental position is anterior, without previa. Amniotic fluid index: 20.8 cm, normal for gestational age. heart rate: 137 beats per minute. Maternal cervical canal: 4.6 cm long; normal length is 2.5 cm or more. biometrics: Biparietal diameter: 8.7 cm, 35 weeks 1 day, 56% Head circumference: 33.7 cm, 38 weeks 4 days, 93% Abdominal circumference: 29.9 cm, 33 weeks 6 days, 25% Femur length: 6.7 cm, 34 weeks 3 days, 28% Estimated gestational age from initial scan: 35 weeks 0 days. Composite gestational age from present scan: 35 weeks 4 days Estimated weight and percentile: 2480 g, 36% Measurement variability in biometric dating: +/- 10 days from 12-20 weeks gestation, +/- 2 weeks from 20-30 weeks gestation, +/- 3 weeks at 30 weeks gestation or later. Biophysical profile: Tone: 2 points. Movement: 2 points. Respiration: 2 points. Largest pocket of fluid: 2 points. IMPRESSION: 1.Single live intrauterine consistent with 35 weeks and 4 days. 2.Breech presentation. 3.Normal biophysical profile. Reviewed by: Fernando Turcios MD on 03/18/2023 8:51 AM PST Approved by: Fernando Turcios MD on 03/18/2023 8:51 AM PST Station ID: [id number]
--- NOTE | 2023-03-18 08:53 | Ultrasound Report ---
PROCEDURE: OB F/U or Repeat INDICATIONS: OBESITY, OUTSIDE/PRIOR DATING DATA: Last menstrual period (LMP): 06/30/2022. LMP-based estimated date of delivery (CLARIBEL): 04/06/2023. First dating scan (date and location): 10/09/2022. Estimated date of delivery (CLARIBEL) from first dating scan: 04/21/2023. The below data below was generated using the ultrasound CLARIBEL of 04/21/2023 TECHNIQUE: Real-time scanning was performed of the fetus, with image documentation and biometric ernesto surements. Biophysical profile was also obtained. Endovaginal scanning: Not performed COMPARISON: Ultrasound 03/09/2023 FINDINGS: General: A single living intrauterine gestation is present. Presentation: Breech Placenta: Placental position is anterior, without previa. Amniotic fluid index: 20.8 cm, normal for gestational age. heart rate: 137 beats per minute. Maternal cervical canal: 4.6 cm long; normal length is 2.5 cm or more. biometrics: Biparietal diameter: 8.7 cm, 35 weeks 1 day, 56% Head circumference: 33.7 cm, 38 weeks 4 days, 93% Abdominal circumference: 29.9 cm, 33 weeks 6 days, 25% Femur length: 6.7 cm, 34 weeks 3 days, 28% Estimated gestational age from initial scan: 35 weeks 0 days. Composite gestational age from present scan: 35 weeks 4 days Estimated weight and percentile: 2480 g, 36% Measurement variability in biometric dating: +/- 10 days from 12-20 weeks gestation, +/- 2 weeks from 20-30 weeks gestation, +/- 3 weeks at 30 weeks gestation or later. Biophysical profile: Tone: 2 points. Movement: 2 points. Respiration: 2 points. Largest pocket of fluid: 2 points. IMPRESSION: 1.Single live intrauterine consistent with 35 weeks and 4 days. 2.Breech presentation. 3.Normal biophysical profile. Reviewed by: Fernando Turcios MD on 03/18/2023 8:52 AM PST Approved by: Fernando Turcios MD on 03/18/2023 8:52 AM PST Station ID: [id number]
== END 2023-03-17 21:07 | disposition home or self-care (01) ==
LOC: DI 21:06
PROVIDERS: ATTEND Nurse Practitioner
DX: O09.893 Supervision of other high risk pregnancies, third trimester (principal); O99.213 Obesity complicating pregnancy, third trimester; O99.343 Other mental disorders complicating pregnancy, third trimester; O32.1XX0 Maternal care for breech presentation, not applicable or unspecified; Z3A.35 35 weeks gestation of pregnancy; O99.891 Other specified diseases and conditions complicating pregnancy; R56.9 Unspecified convulsions

== ENCOUNTER 2023-03-24 08:00 | Outpatient (CLI) | payer OTHER | END 2023-03-24 23:59 | disposition home or self-care (01) | LOC: LAB.WC 08:00 | PROVIDERS: ATTEND Obstetrics & Gynecology | DX: Z36.85 Encounter for antenatal screening for Streptococcus B (principal) | CPT/HCPCS: 87081; 87181; 87797 ==

== ENCOUNTER 2023-03-25 19:33 | Outpatient (CLI) | payer OTHER ==
--- NOTE | 2023-03-28 02:41 | Ultrasound Report ---
PROCEDURE: OB Biophysical Profile INDICATIONS: OBESITY OUTSIDE/PRIOR DATING DATA: Last menstrual period (LMP): 06/30/2022. LMP-based estimated date of delivery (CLARIBEL): 04/06/2023. First dating scan (date and location): 10/09/2022. Estimated date of delivery (CLARIBEL) from first dating scan: 04/21/2023. The below data below was generated using the clinical CLARIBEL of 04/21/2023 TECHNIQUE: Real-time scanning was performed of the fetus, with image documentation and biometric ernesto surements. Biophysical profile was also obtained. COMPARISON: 03/25/2023, 03/09/2023, 03/09/2023 FINDINGS: General: A single living intrauterine gestation is present. Presentation: Vertex Placenta: Placental position is anterior, without previa. Amniotic fluid index: 18.0 cm heart rate: 138 beats per minute. Maternal cervical canal: Not identified Biophysical profile: Tone: 2 points. Movement: 2 points. Respiration: 2 points. Largest pocket of fluid: 2 points. IMPRESSION: Single intrauterine gestation in vertex presentation. Normal biophysical profile. Reviewed by: Sary Lee MD on 03/28/2023 2:40 AM PST Approved by: Sary Lee MD on 03/28/2023 2:40 AM PST Station ID: [id number]
== END 2023-03-25 19:34 | disposition home or self-care (01) ==
LOC: DI 19:33
PROVIDERS: ATTEND Nurse Practitioner
DX: O09.893 Supervision of other high risk pregnancies, third trimester (principal); O99.213 Obesity complicating pregnancy, third trimester; Z3A.00 Weeks of gestation of pregnancy not specified

== ENCOUNTER 2023-03-26 14:06 | Outpatient (CLI) | payer OTHER ==
[2023-03-26 15:06] VITALS: BP 124/76
--- NOTE | 2023-03-26 17:04 | PROCEDURE REPORT ---
- HPI Diagnosis/Indication for NST: Gestational Diabetes Current EDU 04/21/23 Gestation 36 Weeks and 2 Days 4 Para 3 Vital Signs Temperature 98.2 F 03/26/23 14:24 Heart Rate 70 03/26/23 14:24 Respiratory Rate 17 03/26/23 14:24 Blood Pressure 124/76 03/26/23 14:24 Temperature 98.2 F 03/26/23 14:24 Heart Rate 70 03/26/23 14:24 Respiratory Rate 17 03/26/23 14:24 Blood Pressure 124/76 03/26/23 14:24 O2 Saturation If not protocol: Oxygen Flow, liters/minute - NST Procedure NST Procedure Start Date 03/26/23 Start Time 14:28 Stop Time 14:52 Vibroacoustic Stimulation Used No - Results and Plan Findings/Impression: 140 mod dolores + A cells no D cells reactive Plan: reactive NST, OK to D/C home with precautions to continue scheduled ANC.
== END 2023-03-26 15:05 | disposition home or self-care (01) ==
LOC: WFO 14:06 → FBP 14:10 → WFO 15:05
PROVIDERS: ATTEND Obstetrics & Gynecology
DX: O09.893 Supervision of other high risk pregnancies, third trimester (principal); O99.213 Obesity complicating pregnancy, third trimester; O99.353 Diseases of the nervous system complicating pregnancy, third trimester; G40.909 Epilepsy, unspecified, not intractable, without status epilepticus; Z3A.36 36 weeks gestation of pregnancy
CPT/HCPCS: 59025

== ENCOUNTER 2023-03-30 10:21 | Outpatient (CLI) | payer OTHER ==
[2023-03-30 10:47] VITALS: BP 127/68
--- NOTE | 2023-03-30 14:33 | PROCEDURE REPORT ---
- HPI Diagnosis/Indication for NST: Gestational Diabetes Current EDU 04/21/23 Gestation 36 Weeks and 6 Days 4 Para 3 Vital Signs Temperature 98.1 F 03/30/23 10:38 Heart Rate 72 03/30/23 10:38 Respiratory Rate 16 03/30/23 10:38 Blood Pressure 127/68 03/30/23 10:38 Temperature 98.1 F 03/30/23 10:38 Heart Rate 72 03/30/23 10:38 Respiratory Rate 16 03/30/23 10:38 Blood Pressure 127/68 03/30/23 10:38 O2 Saturation If not protocol: Oxygen Flow, liters/minute - NST Procedure NST Procedure Start Date 03/30/23 Start Time 10:37 Stop Time 11:08 Vibroacoustic Stimulation Used No Patient States Movement Yes - Results and Plan Findings/Impression: 145 mod dolores + A cells no D cells reactive Plan: OK to D/C home with continued ANC precautions reviewed.
== END 2023-03-30 11:10 | disposition home or self-care (01) ==
LOC: WFO 10:21 → FBP 10:26 → WFO 11:10
PROVIDERS: ATTEND Obstetrics & Gynecology
DX: O24.419 Gestational diabetes mellitus in pregnancy, unspecified control (principal); O09.893 Supervision of other high risk pregnancies, third trimester; O99.213 Obesity complicating pregnancy, third trimester; O99.353 Diseases of the nervous system complicating pregnancy, third trimester; G40.909 Epilepsy, unspecified, not intractable, without status epilepticus; Z3A.36 36 weeks gestation of pregnancy
CPT/HCPCS: 59025

== ENCOUNTER 2023-03-30 11:14 | Outpatient (CLI) | payer OTHER ==
--- NOTE | 2023-03-30 15:55 | Ultrasound Report ---
PROCEDURE: OB Follow up INDICATIONS: OBESITY COMPLICATING , ABNML GLUCOSE TOLERANCE, EPILEPSY OUTSIDE/PRIOR DATING DATA: Last menstrual period (LMP): 06/30/2022. LMP-based estimated date of delivery (CLARIBEL): 04/06/2023. First dating scan (date and location): 10/09/2022. Estimated date of delivery (CLARIBEL) from first dating scan: 04/21/2023. The below data below was generated using the ultrasound CLARIBEL of 04/21/2023 TECHNIQUE: Real-time scanning was performed of the fetus, with image documentation and biometric measurements. COMPARISON: OB ultrasound 03/25/2023 FINDINGS: General: A single living intrauterine gestation is present. Presentation: Vertex Placenta: Placental position is anterior, without previa. Amniotic fluid index: 13 cm, within normal limits for gestational age. heart rate: 141 beats per minute. Maternal cervical canal: 4.1 cm long; normal length is 2.5 cm or more. biometrics: Biparietal diameter: 8.8 cm Weeks 4 days 20th percentile Head circumference: 32.2 cm there is a 3 days 15 percentile Abdominal circumference: 30.6 cm 34 weeks 4 days 7.4 percentile Femur length: 6.9 cm 35 weeks 2 days 14th percentile Estimated gestational age from initial scan: 36 weeks 6 days Composite gestational age from present scan: 35 weeks 3 days Estimated weight and percentile: 2576 g 13th percentile Measurement variability in biometric dating: +/- 10 days from 12-20 weeks gestation, +/- 2 weeks from 20-30 weeks gestation, +/- 3 weeks at 30 weeks gestation or more. Other: Tone: 2 Movement: 2 Respiration: 2 Largest pocket: 2 IMPRESSION: Single live intrauterine with ultrasound gestational age of 35 weeks 3 days. It is noted there has been percentile biometric decreases, compared to prior exam. Continued interval follow-up is recommended. weight is at the 13th percentile. Reviewed by: Inez Moctezuma MD on 03/30/2023 3:54 PM PST Approved by: Inez Moctezuma MD on 03/30/2023 3:54 PM PST Station ID: [id number]
--- NOTE | 2023-03-30 17:44 | Ultrasound Report ---
PROCEDURE: OB Biophysical Profile INDICATIONS: OBESITY OUTSIDE/PRIOR DATING DATA: Last menstrual period (LMP): 06/30/2022. LMP-based estimated date of delivery (CLARIBEL): 04/06/2023. First dating scan (date and location): Dr. Diamond, 10/09/2022. Estimated date of delivery (CLARIBEL) from first dating scan: 04/21/2023. TECHNIQUE: Real-time scanning was performed of the fetus, with image documentation and biometric ernesto surements. Biophysical profile was also obtained. Endovaginal scanning: Performed COMPARISON: None. FINDINGS: General: A single living intrauterine gestation is present. Presentation: Vertex Placenta: Placental position is anterior, without previa. Amniotic fluid index: 13.0 cm. heart rate: 158 beats per minute. Maternal cervical canal: 4.1 cm long; normal length is 2.5 cm or more. biometrics: Biparietal diameter: 8.8 cm, 35 weeks, 4 days, 28% Head circumference: 32.2 cm, 36 weeks, 3 days, 15% Abdominal circumference: 30.6 cm, 34 weeks, 4 days, 7.4% Femur length: 6.9 cm, 35 weeks, 2 days, 14% Estimated gestational age from initial scan 36 weeks, 6 days Composite gestational age from present scan: 5 weeks, 3 days Estimated weight and percentile: 2576 g, 13% Measurement variability in biometric dating: +/- 10 days from 12-20 weeks gestation, +/- 2 weeks from 20-30 weeks gestation, +/- 3 weeks at 30 weeks gestation or later. Biophysical profile: Tone: 2 points. Movement: 2 points. Respiration: 2 points. Largest pocket of fluid: 2 points. IMPRESSION: 1. Single live intrauterine gestation with a composite gestational age which is concordant with dates by initial scan. 2. 10/26 biophysical profile. Reviewed by: Shy Ortiz MD on 03/30/2023 5:43 PM PST Approved by: Shy Ortiz MD on 03/30/2023 5:43 PM PST Station ID: [id number]
== END 2023-03-30 11:15 | disposition home or self-care (01) ==
LOC: DI 11:14
PROVIDERS: ATTEND Nurse Practitioner
DX: O99.893 Other specified diseases and conditions complicating puerperium (principal); O99.213 Obesity complicating pregnancy, third trimester; O99.343 Other mental disorders complicating pregnancy, third trimester; O99.810 Abnormal glucose complicating pregnancy; G40.909 Epilepsy, unspecified, not intractable, without status epilepticus; O99.353 Diseases of the nervous system complicating pregnancy, third trimester; Z3A.35 35 weeks gestation of pregnancy

== ENCOUNTER 2023-04-01 18:12 | Outpatient (CLI) | payer OTHER ==
[2023-04-01 18:52] VITALS: BP 138/76; O2SAT 99
--- NOTE | 2023-04-01 19:34 | PROVIDER PROGRESS NOTE ---
- HPI Current : Vital Signs Blood Pressure 146/79 H 04/01/23 18:20 Temperature 98.1 F 04/01/23 18:42 Heart Rate 64 04/01/23 18:42 Respiratory Rate 17 04/01/23 18:42 Blood Pressure 138/76 H 04/01/23 18:42 O2 Saturation 99 04/01/23 18:42 If not protocol: Oxygen Flow, liters/minute - Procedures OB Procedure Performed: NST Diagnosis/Indication for NST: Decreased movement - Plan Plan: Patient is a 37-year-old female 37 weeks gestation presenting for decreased movement. She had numerous movements yesterday, but says she only has felt her baby move several times today. Played some music to try to wake up baby. This did not happen, so she called clinic as was advised to come in to labor and delivery. Since arrival, she has felt baby move. She does have some low back pain and discomfort and overall is tired of being . She does states she lost her mucous plug yesterday. NST Performed 04/01/2023 NST Read 04/01/2023 FHT: 135 bpm baseline, moderate variability, accelerations present, no decelerations. Reactive NST [place]: Quiescent Diagnosis 37 weeks gestation -Patient is very uncomfortable and tired of being . Discussed 39-week induction and scheduled at 39 weeks. Will discuss at her visit next week. Decreased movement -Has felt baby move since being here and saw baby moving. Reactive NST. Normal LAURO
== END 2023-04-01 19:56 | disposition home or self-care (01) ==
LOC: WFO 18:12 → FBP 18:14 → WFO 19:56
PROVIDERS: ATTEND Obstetrics & Gynecology
DX: O36.8130 Decreased fetal movements, third trimester, not applicable or unspecified (principal); Z3A.37 37 weeks gestation of pregnancy
CPT/HCPCS: 59025; 99213

== ENCOUNTER 2023-10-23 09:48 | Outpatient (CLI) | payer OTHER | END 2023-10-23 23:59 | disposition critical access hospital (66) | LOC: EMS 09:48 | DX: R56.9 Unspecified convulsions (principal) | CPT/HCPCS: A0425; A0429 ==

== ENCOUNTER 2023-10-23 10:10 | Emergency (ER) | payer OTHER ==
[2023-10-23] MEDS: LORazepam 2 MG/ML VIAL IVP STA (10:20)
--- NOTE | 2023-10-23 10:21 | ED Physician Documentation ---
History of Present Illness - Stated complaint Stated Complaint: SZ - History obtained from History obtained from: EMS - Additonal information Additional information: The patient is brought to the emergency department by EMS for chief complaint of seizure. She has a known history of seizure disorder and is on Lamictal for this, but has been noncompliant over the last several days. The patient had what was described by family as a fairly typical seizure at home per medics family called EMS. By the time EMS got there, the patient had come to and was able to answer some questions. She had taken a dose of her Lamictal there. And route to the hospital, the patient had another seizure just before arrival and was currently postictal. Medics state that the patient desatted into the 70s during the seizure so they have been doing blow-by oxygen since. The patient is unable to answer any questions. She is agitated and somewhat combative and not alert. No other information available at this time. PD PAST MEDICAL HISTORY - Past Medical History Cardiovascular: None Respiratory: None Neuro: Seizure disorder Endocrine/Autoimmune: None GI: None 911 EMERGENCY DISPATCHER: None : None HEENT: None Psych: Depression Musculoskeletal: None Derm: None - Past Surgical History Past Surgical History: Yes General: Cholecystectomy - Present Medications Home Medications: Ambulatory Orders Medication Instructions Recorded Confirmed lamoTRIgine [LaMICtal] 300 mg PO BID 02/21/19 02/21/19 Cholecalciferol (Vitamin D3) 50 mcg PO DAILY #100 tab 04/17/23 [Vitamin D3] Docusate Sodium 100Mg Capsule 100 - 200 mg PO BID PRN #60 cap 04/17/23 [Colace 100Mg Capsule] Escitalopram [Lexapro] 20 mg PO DAILY 04/17/23 04/17/23 Ibuprofen [Motrin] 600 mg PO Q6H PRN #30 tab 04/17/23 NIFEdipine [Nifedipine ER] 30 mg PO BID #60 tab 04/17/23 buPROPion [Wellbutrin Xl] 150 mg PO DAILY 04/17/23 04/17/23 - Allergies Allergies/Adverse Reactions: Allergies Allergy/AdvReac Type Severity Reaction Status Date / Time No Known Drug Allergies Allergy Verified 10/23/23 10:37 - Social History Does the pt smoke?: No Smoking Status: Former smoker Does the pt drink ETOH?: No Does the pt have substance abuse?: No - Immunizations Immunizations are current?: Yes - POLST Patient has POLST: No PD ED PE NORMAL - Vitals Vital signs reviewed: Yes - General General: Other (Nonverbal, not alert, fidgeting and thrashing and moaning.) - HEENT HEENT: Atraumatic, PERRL, Moist mucous membranes - Neck Neck: Supple, no meningeal sign - Cardiac Cardiac: RRR, No murmur - Respiratory Respiratory: No respiratory distress, Clear bilaterally - Abdomen Abdomen: Soft, Non tender, Other (Morbidly obese) - Derm Derm: Normal color, Warm and dry, No rash - Extremities Extremities: No deformity, No edema - Neuro Neuro: Other (Moving all 4 extremities. Obtunded but agitated.) - Psych Psych: Normal mood, Normal affect Results - Vitals Vitals: Oxygen O2 Source Room air - Labs Labs: Laboratory Tests 10/23/23 10/23/23 10:38 10:38 WBC 10.3 RBC 4.46 Hgb 13.3 Hct 41.3 MCV 92.6 MCH 29.8 MCHC 32.2 RDW 13.3 Plt Count 313 MPV 10.0 Neut # (Auto) 6.8 H Lymph # (Auto) 2.7 Gates # (Auto) 0.7 Eos # (Auto) 0.0 Baso # (Auto) 0.1 Absolute Nucleated RBC 0.00 Nucleated RBC % 0.0 Sodium 135 Potassium 3.8 Chloride 102 Carbon Dioxide 20 L Anion Gap 13.0 BUN 11 Creatinine 0.9 Estimated GFR (MDRD) 69 L Glucose 150 H Calcium 9.7 Total Bilirubin 0.3 AST 23 ALT 34 Alkaline Phosphatase 42 Total Protein 7.7 Albumin 4.5 Globulin 3.2 Albumin/Globulin Ratio 1.4 Lipase 22 PD Medical Decision Making - ED course Complexity details: reviewed old records, reviewed results, re-evaluated patient, considered differential, d/w patient ED course: The patient appeared clinically postictal. IV had been placed by medics and blood work was ordered including CBC and ER abdominal panel. I suspected a breakthrough seizure secondary to anticonvulsant noncompliance recently. The patient was given half milligram of Ativan here in the emergency department and had already taken a dose of her Lamictal at home. She had no further seizure activity here. The patient's labs are unremarkable. She gradually became more wakeful and when fully awake and appropriate, I felt she was stable for discharge home. I have advised her to get right back on her Lamictal and not miss any doses. I have also advised her to follow-up with her neurologist and to make the next available appointment with both neurology and her primary doctor. We have discussed the usual indications for return. Departure - Departure Disposition: Home, Self Care Clinical Impression: Seizure, Noncompliance with medication regimen Condition: Stable Instructions: ED Seizure Recurrent Comments: You have had a breakthrough seizure today, most likely because you have missed some doses of your Lamictal. It is very important that you stay on your Lamictal as directed so that you do not put yourself at risk for further seizures. You have been treated with some IV medication in the emergency department to help prevent further seizures while the dose of Lamictal that you took today kicks in. Please get back on your regular schedule immediately for taking your meds. Please follow-up with your neurologist and primary doctor for further concerns regarding your seizure disorder. Your blood work looks good today and there is no evidence of an underlying condition at this time that would be causing you to have seizures other than your usual seizure disorder. Forms: PCP List Discharge Date/Time: 10/23/23 13:22
[2023-10-23 10:48] LABS: BASOPHILS # (AUTO) 0.1 10^3/uL (0.0-0.1); BASOPHILS % (AUTO) 0.5 %; HCT - HEMATOCRIT 41.3 % (37.0-47.0); HGB - HEMOGLOBIN 13.3 g/dL (12.0-16.0); LYMPHOCYTES # (AUTO) 2.7 10^3/uL (1.5-3.5); LYMPHOCYTES % (AUTO) 26.4 %; MEAN CORPUSCULAR HEMOGLOBIN 29.8 pg (27.0-31.0); MEAN CORPUSCULAR HGB CONC 32.2 g/dL (32.0-36.0); MEAN CORPUSCULAR VOLUME 92.6 fL (81.0-99.0); MONOCYTES # (AUTO) 0.7 10^3/uL (0.0-1.0); MONOCYTES % (AUTO) 6.4 %; NEUTROPHILS # (AUTO) 6.8 10^3/uL (1.5-6.6); NEUTROPHILS % (AUTO) 65.9 %; PLT - PLATELET COUNT 313 10^3/uL (130-450); RED BLOOD COUNT 4.46 10^6/uL (4.20-5.40); RED CELL DISTRIBUTION WIDTH 13.3 % (12.0-15.0); WHITE BLOOD COUNT 10.3 x10^3/uL (4.8-10.8)
[2023-10-23 11:02] LABS: ALBUMIN 4.5 g/dL (3.2-5.5); ALBUMIN/GLOBULIN RATIO 1.4 (1.0-2.2); BILIRUBIN,TOTAL 0.3 mg/dL (0.2-1.0); CALCIUM 9.7 mg/dL (8.5-10.3); CREATININE 0.9 mg/dL (0.6-1.3); POTASSIUM 3.8 mmol/L (3.5-4.5); TOTAL PROTEIN 7.7 g/dL (6.4-8.9)
[2023-10-23] MEDS: DROPERIDOL 5 MG/2 ML VIAL IVP STA (11:54)
[2023-10-23 12:57] VITALS: BP 115/74
[2023-10-23 13:33] VITALS: O2SAT 93
== END 2023-10-23 13:22 | disposition home or self-care (01) ==
LOC: EDUNIT# → ED 10:10
DX: R56.9 Unspecified convulsions (principal); Z91.148 Patient's other noncompliance with medication regimen for other reason; Z87.891 Personal history of nicotine dependence
CPT/HCPCS: 36415; 80053; 83690; 85025; 96374; 96375; 99283; J2060